=== PATIENT | male | born 1945 | race Caucasian/White ===

== ENCOUNTER 2023-02-10 09:52 | Day surgery (SDC) | payer OTHER, SELFPAY ==
[2023-02-10 10:07] VITALS: BP 174/75; PULSE 52; RESP 16; TEMP 36.2; O2SAT 98
[2023-02-10] MEDS: Tropicam./Phenyleph. (1/2.5%) 5 ML BTL OD ×3 (10:17→10:40)
--- NOTE | 2023-02-10 10:48 | ANES.PREOP_ITS ---
General Info Date of Service Date Performed: 02/10/23 Height: 5 ft 7.5 in Weight: 95.3 kg Body Mass Index (BMI): 32.4 Surgical Procedure: Operation Date: 02/10/23 11:25 Proposed Procedure Side Surgeon p Cataract Extraction with IOL Implant Right Honorio Moraes MD Meds Allergies and Home Medications Allergies Allergy/AdvReac Type Severity Reaction Status Date / Time rosiglitazone AdvReac Intermediate Unknown Unverified 02/10/23 10:21 Home Medication Medication Instructions Recorded apixaban 5 mg tablet 5 mg PO Q12H 02/09/23 atorvastatin 80 mg tablet 80 mg PO DAILY 02/09/23 clopidogrel 75 mg tablet 75 mg PO DAILY 02/09/23 diclofenac sodium 1 % topical gel 1 applic topical DIRECTED 02/09/23 diltiazem HCl 180 mg capsule,24 180 mg PO DAILY 02/09/23 hr,extended release folic acid 1 mg tablet 1 mg PO DAILY 02/09/23 glucose 4 gram chewable tablet 4 g PO DIRECTED 02/09/23 insulin glargine 100 unit/mL (3 50 unit subcut HS 02/09/23 mL) subcutaneous pen (Lantus Solostar U-100 Insulin) isosorbide mononitrate 60 mg 60 mg PO HS 02/09/23 tablet,extended release 24 hr lisinopril 10 mg tablet 10 mg PO DAILY 02/09/23 methotrexate sodium 2.5 mg tablet 15 mg PO QWEEK 02/09/23 metoprolol succinate 200 mg 200 mg PO DAILY 02/09/23 tablet,extended release 24 hr nitroglycerin 0.4 mg sublingual 0.4 mg sublingual DIRECTED 02/09/23 tablet ranolazine 500 mg tablet,extended 500 mg PO Q12H 02/09/23 release,12 hr Current Visit Medications: Current Medications Generic Name Dose Route Start Last Admin Trade Name Freq PRN Reason Stop Dose Admin Acetaminophen 1,000 mg 02/10/23 06:00 Acetaminophen 500 Mg Tab PO 03/12/23 05:59 Q4H PRN PRN Balanced Salt Solution 500 ml 02/10/23 06:00 Balanced Salt Soln.-Plus 500 Ml Bag OP 03/12/23 05:59 DIRECTED TOLU Miscellaneous Medication 0 ml 02/10/23 06:00 Prednisolone 1%, Moxifloxacin 0.5%, Nepafenac 0.1% 5ml Btl OD 03/12/23 05:59 DIRECTED TOLU Miscellaneous Medication 0 ml 02/10/23 06:00 02/10/23 10:40 Tropicam./Phenyleph. (1/2.5%) 5 Ml Btl OD 03/12/23 05:59 1 drp DIRECTED TOLU Administration Tetracaine HCl 0 ml 02/10/23 06:00 Tetracaine 0.5% 4 Ml Btl OD 03/12/23 05:59 DIRECTED TOLU PFSH Active Problems Active Problems: Problem Status Onset Code Posterior subcapsular age-related cataract, right eye H25.041 Cortical age-related cataract, right eye H25.011 Nuclear age-related cataract, right eye H25.11 Medical History Medical History A-fib Anxiety Depressive disorder Diabetes mellitus Edema Exposure to Agent [place] Eye injury Heart disease History of angina HTN (hypertension) Keratoderma, acquired Memory problem Migraines Myocardial infarction 1989 Paralytic sciatica Paraphimosis Phimosis Psoriatic arthritis PTSD (post-traumatic stress disorder) PVD (peripheral vascular disease) Spinal stenosis of lumbar region Tinnitus Medical History Comments:: 02/10/23: pt reports angina, vague when last angina episode was/possible a few weeks ago Surgical History Surgical History History of amputation of right foot pt states not whole foot, just toe and long bone in the foot S/P CABG x 3 12/2021x3 06/2022x1 total of 4 stents F/U with cardiology Dr. Cueva at [facility] Tobacco Smoking/Tobacco Use Status: Never Alcohol Alcohol Intake: current Alcohol intake frequency: a few times a week Alcohol type: beer Substance Use Substance use: Never Substance use type: does not use Vital Signs and Lab Results Vital Signs Most Recent Vital Signs in EMR: Most Recent Vital Signs Temp Pulse Resp BP Pulse Ox 36.2 C L 52 L 16 174/75 H 98 02/10/23 10:07 02/10/23 10:07 02/10/23 10:07 02/10/23 10:07 02/10/23 10:07 Point of Care Results Point of Care Results: Finger Stick Blood Glucose 159 02/10/23 10:09 Lab Results Blood Type / Crossmatch: No Data to Display Complete Blood Count: No Data to Display Complete Metabolic Panel: No Data to Display Liver Function Panel: No Data to Display Coagulation Panel: No Data to Display Cardiac Panel: No Data to Display Arterial Blood Gas: No Data to Display Venous Blood Gas: No Data to Display Pancreas Panel: No Data to Display Thyroid Panel: No Data to Display Infectious Disease: No Data to Display Blood Cultures: No Data to Display Toxicology Panel: No Data to Display Imaging and Studies Imaging and Studies Study information below may be from another EMR and interpreted by another provider. Please see original notes in EMR for more complete details. Echocardiogram Summary: Reviewed ECHO from [facility] [place]. Cardiac Catheterization Summary: Reviewed from outside facility. Anesthesia Assessment and Plan Anesthesia History Personal History: No History of Anesthesia Complications Family History: No Family History of Anesthesia Complications Exercise Tolerance Exercise Tolerance: Metabolic Equivalents<4 Pertinent Negatives Pertinent Negatives: No Symptoms of GERD and No History of CVA/TIA Cardiac & Pulmonary Exam Cardiac Exam: Normal S1/S2 Heart Sounds Pulmonary Exam: Wheezing Present (LLL, DESEAN) Implantable Cardiac Device Does patient have a Pacemaker or an ICD?: No Airway Exam Known Difficult Airway: No Mallampati Class: 2 Mouth Opening: Normal (> 3cm) Thyromental Distance: Greater than 3 cm Neck Range of Motion: Full ROM Neck Circumference: Normal Teeth Condition: Generalized Poor Dentition and Loose or Chipped Airway Comments: Many missing teeth. ASA Classification ASA Score: ASA 3 Emergency Case?: No NPO Status NPO Status: NPO Clears >2 hours, Solids >8 hours Anesthesia Plan Resuscitation Status: Full Code Anesthesia Technique: MAC Anesthesia Airway Planned: Natural Airway Monitors Used: Standard Monitors
[2023-02-10 11:05] VITALS: BMI 32.4
[2023-02-10] MEDS: Balanced Salt Soln.-PLUS 500 ML BAG OP (11:16)
[2023-02-10] MEDS: Tetracaine 0.5% 4 ML BTL OD (11:17)
[2023-02-10] MEDS: Lidocaine 1% Pres-Free 5 ML VIAL (11:18)
[2023-02-10] MEDS: Duovisc Viscoelastic System EACH 1 EACH (11:18)
[2023-02-10] MEDS: Phenylephrine/Lidocaine (15/10) MG/ML 1 ML VIAL (11:19)
[2023-02-10] MEDS: Povidone-Iodine Ophth 30 ML BTL (11:20)
[2023-02-10] MEDS: Triamcinolone 40 MG/ML VIAL (11:20)
[2023-02-10 11:30] VITALS: BP 126/67; PULSE 59; RESP 18; TEMP 36.5; O2SAT 96
--- NOTE | 2023-02-10 11:31 | W.PM.DSUDISC ---
Date of service: 02/10/23 Time of Service: 11:31 Discharge Plan Disposition Patient Disposition: Home Discharge Details Attending Provider: Honorio Moraes Primary Care Provider: [facility] Home Meds and New Rx's Prescriptions: No Action atorvastatin 80 mg Tablet 80 mg PO DAILY diltiazem HCl 180 mg Capsule,Extended Release 24 Hr 180 mg PO DAILY metoprolol succinate 200 mg Tablet Extended Release 24 Hr 200 mg PO DAILY clopidogrel 75 mg Tablet 75 mg PO DAILY isosorbide mononitrate 60 mg Tablet Extended Release 24 Hr 60 mg PO HS methotrexate sodium [Methotrexate (Anti-Rheumatic)] 2.5 mg Tablet 15 mg PO QWEEK lisinopril 10 mg Tablet 10 mg PO DAILY glucose 4 gram Tablet,Chewable 4 g PO DIRECTED nitroglycerin 0.4 mg Tablet, Sublingual 0.4 mg sublingual DIRECTED folic acid 1 mg Tablet 1 mg PO DAILY ranolazine 500 mg Tablet Extended Release 12 Hr 500 mg PO Q12H insulin glargine [Lantus Solostar U-100 Insulin] 100 unit/mL (3 mL) Insulin Pen 50 unit SUBCUT HS diclofenac sodium 1 % Gel 1 applic TOPICAL DIRECTED apixaban 5 mg Tablet 5 mg PO Q12H Discharge Instructions Stand Alone Forms: Post-op Topical Cataract, Colton Prescott ([facility]) Discharge Orders Discharge Orders: Discharge Order (Routine); Ordered 02/10/23 Ordered By: Honorio Moraes DS: Diagnosis Discharge Diagnosis (1) Posterior subcapsular age-related cataract, right eye: Status: Resolved (2) Cortical age-related cataract, right eye: Status: Resolved (3) Nuclear age-related cataract, right eye: Status: Resolved
--- NOTE | 2023-02-10 11:32 | W.PM.OP ---
Date of service: 02/10/23 Time of Service: 11:32 Operative Note Operative Note DATE OF PROCEDURE: 02/10/23 PRE-OP DIAGNOSIS: Nuclear/cortical/posterior subcapsular cataract, right eye POST-OP DIAGNOSIS: same PROCEDURE: Cataract extraction using phacoemulsification with intraocular lens implant, left eye SURGEON: Honorio Moraes ANESTHESIA TYPE: Local By Surgeon and MAC Refer to Anesthesia Record PATHOLOGY: none sent COMPLICATIONS: None Patient was transported to: same day Patient's condition: stable Implants: Finn and Finn Tecnis Eyhance DIB00 Indications: Progressive decreased vision due to cataract, left eye Procedure Description: CATARACT SURGERY OPERATIVE REPORT PREOPERATIVE DIAGNOSIS: 1. Nuclear/cortical/posterior subcapsular cataract, right eye POSTOPERATIVE DIAGNOSIS: Same OPERATION: 1. Cataract extraction using phacoemulsification with posterior chamber intraocular lens implant, left eye. IOL: IOL Indoor Plant Technician/Model: Finn & Finn Tecnis Eyhance DIB00 IOL Power: + 14.0 diopters IOL Serial Number: [id number] Optic Diameter: 6.0 mm Haptic/Overall Diameter: 13.0 mm PHACO INFO: Mark Indiewallsurion Vision System with OZil and Active Fluidics Cumulative Dispersed Energy (CDE): 11.55 seconds SURGEON: Honorio Moraes MD, FIOR ANESTHESIA: Monitored A [facility] (MAC), with local sub-tenon's anesthetic infiltration COMPLICATIONS: None SPECIMENS: None INDICATIONS FOR PROCEDURE: The patient is a 77-year-old gentleman with history of diminished visual acuity in both eyes secondary to the development of bilateral nuclear/cortical/posterior subcapsular cataract. He also has diabetes with diabetic retinopathy. The option of cataract surgery was offered to the patient and he felt he was symptomatic enough that he wished to proceed, although understands that postoperative visual acuity will be limited by the presence of pre-existing diabetic retinopathy. See office notes for detailed information. PROCEDURE: The correct surgical eye was identified and marked as the left eye and the pupil was dilated in the preoperative area using mydriatics and cycloplegics. The dilated pupil size was 7.0 mm. The patient elected to proceed without oral sedation. The patient was brought to the operating room where cardiopulmonary monitoring was instituted and surgical time-out was performed, confirming the correct operative eye and IOL power. Topical anesthesia was administered and ophthalmic povidone-iodine 5% was instilled into the conjunctival fornices. The roxanne-ocular area was prepped with Betadine 10% solution and draped in the usual sterile fashion for intraocular surgery, including an aperture drape. A Tegaderm transparent film dressing was cut in half and used to cover the lashes and lid margins. Care was taken to sequester the lashes and lid margins under the Tegaderm dressing. A lid speculum was placed between the lids of the operative eye and the Mark LuxOR Revalia operating microscope was maneuvered into position. Addis scissors were then used to make a conjunctival buttonhole approximately 6mm posterior to the limbus in the inferonasal quadrant. Blunt dissection was carried out to expose bare sclera, and a blunt-tipped sub-tenon?s anesthesia cannula was introduced and passed posteriorly along the globe where non-preserved plain lidocaine was injected into posterior sub-Tenon?s space. A sideport knife was used to make a paracentesis port. Intraocular phenylephrine/lidocaine was injected into the anterior chamber.. The anterior chamber was filled with viscoelastic. A keratome knife was used to construct a 2-plane near-clear corneal tunnel extending 2.0mm into clear cornea. A flap was raised on the anterior capsule and capsulorhexis forceps were used to complete a continuous curvilinear capsulorhexis of 5.0 mm. Balanced salt solution was then used to perform cortical cleaving hydrodissection and nuclear hydrodelineation until the lens could be freely rotated within the capsular bag. The lens nucleus was then disassembled and removed within the capsular bag and iris plane using phacoemulsification. Residual cortical material was removed using the irrigation/aspiration handpiece. The posterior capsule was carefully polished to remove as much residual lens epithelial cells as safely possible. The capsular bag was then inflated and the anterior chamber deepened with viscoelastic. The lens implant described above was inserted into the capsular bag using the Finn and Finn Simplicity pre-loaded injector. A Kuglen hook was used to dial the IOL into position. Residual viscoelastic was then removed first from posterior to the IOL, then from the anterior chamber using the I/A handpiece. The lens implant was noted to center nicely within the capsular bag. The incisions were stromally hydrated, and the anterior chamber was reformed using BSS. Then 0.5cc of moxifloxacin 1.0mg/ml were injected into the capsular bag and anterior chamber. The incisions were checked with a Weck spear and found to be secure. Next, Kenalog 20 mg in 0.5 cc were injected into posterior sub-tenon's space, using the sub-tenon's anesthesia injection cannula. Several drops of ophthalmic povidone-iodine 5% were then applied to the eye followed by two drops of Imprimis combination prednisolone/moxifloxacin/nepafenac solution. The drapes were removed and a clear plastic protective eye shield was placed over the eye. The patient was then returned to Same Day Surgery in stable condition.
--- NOTE | 2023-02-10 12:01 | W.ANESPOSTOP ---
Postoperative Evaluation Date, Time and Location Date Performed: 02/10/23 Time Performed: 11:32 Patient Location: Day Surgery Unit Vital Signs Most Recent Imported Vital Signs: Most Recent Vital Signs Temp Pulse Resp BP Pulse Ox 36.5 C 59 L 18 126/67 96 02/10/23 11:30 02/10/23 11:30 02/10/23 11:30 02/10/23 11:30 02/10/23 11:30 Pain Score Most Recent Pain Score: Most Recent Pain Score Pain Level 0 02/10/23 11:30 Assessment Mental Status: Awake (Alert & Oriented to Patient Baseline) Airway and Respiratory Function: Patent airway with normal (patient baseline) respiratory exam Cardiovascular Function: Hemodynamically Stable Hydration Status: Adequately Hydrated Nausea & Vomiting: No Nausea or Vomiting Pain: Pt. Denies Any Pain Peripheral Nerve Block: Other (Local by Dr. Moraes)
== END 2023-02-10 11:49 | disposition home or self-care (01) ==
PROVIDERS: Visit Provider Ophthalmology
PROC: (CPT 66984; principal; 2023-02-10 11:15)
DX: H25.041 Posterior subcapsular polar age-related cataract, right eye (principal); H25.011 Cortical age-related cataract, right eye; H25.11 Age-related nuclear cataract, right eye; I10 Essential (primary) hypertension
CPT/HCPCS: 66984; V2632

== ENCOUNTER 2023-02-24 12:13 | Day surgery (SDC) | payer OTHER, SELFPAY ==
[2023-02-24 13:16] VITALS: BP 165/72; PULSE 53; RESP 16; TEMP 36.5; O2SAT 98
[2023-02-24] MEDS: Tropicam./Phenyleph. (1/2.5%) 5 ML BTL OS ×3 (13:25→13:36)
--- NOTE | 2023-02-24 13:42 | ANES.PREOP_ITS ---
General Info Date of Service Date Performed: 02/24/23 Height: 5 ft 7 in Weight: 96.4 kg Body Mass Index (BMI): 33.3 Surgical Procedure: Operation Date: 02/24/23 14:40 Proposed Procedure Side Surgeon p Cataract Extraction with IOL Implant Left Honorio Moraes MD Meds Allergies and Home Medications Allergies Allergy/AdvReac Type Severity Reaction Status Date / Time rosiglitazone AdvReac Intermediate Unknown Verified 02/24/23 13:12 Home Medication Medication Instructions Recorded apixaban 5 mg tablet 5 mg PO Q12H 02/09/23 atorvastatin 80 mg tablet 80 mg PO DAILY 02/09/23 clopidogrel 75 mg tablet 75 mg PO DAILY 02/09/23 diclofenac sodium 1 % topical gel 1 applic topical DIRECTED 02/09/23 diltiazem HCl 180 mg capsule,24 180 mg PO DAILY 02/09/23 hr,extended release folic acid 1 mg tablet 1 mg PO DAILY 02/09/23 glucose 4 gram chewable tablet 4 g PO DIRECTED 02/09/23 insulin glargine 100 unit/mL (3 50 unit subcut HS 02/09/23 mL) subcutaneous pen (Lantus Solostar U-100 Insulin) isosorbide mononitrate 60 mg 60 mg PO HS 02/09/23 tablet,extended release 24 hr lisinopril 10 mg tablet 10 mg PO DAILY 02/09/23 methotrexate sodium 2.5 mg tablet 15 mg PO QWEEK 02/09/23 metoprolol succinate 200 mg 200 mg PO DAILY 02/09/23 tablet,extended release 24 hr nitroglycerin 0.4 mg sublingual 0.4 mg sublingual DIRECTED 02/09/23 tablet ranolazine 500 mg tablet,extended 500 mg PO Q12H 02/09/23 release,12 hr Current Visit Medications: Current Medications Generic Name Dose Route Start Last Admin Trade Name Freq PRN Reason Stop Dose Admin Acetaminophen 1,000 mg 02/24/23 06:00 Acetaminophen 500 Mg Tab PO 03/26/23 05:59 Q4H PRN PRN Balanced Salt Solution 500 ml 02/24/23 06:00 Balanced Salt Soln.-Plus 500 Ml Bag OP 03/26/23 05:59 DIRECTED TOLU Miscellaneous Medication 0 ml 02/24/23 06:00 Prednisolone 1%, Moxifloxacin 0.5%, Nepafenac 0.1% 5ml Btl OS 03/26/23 05:59 DIRECTED TOLU Miscellaneous Medication 0 ml 02/24/23 06:00 02/24/23 13:36 Tropicam./Phenyleph. (1/2.5%) 5 Ml Btl OS 03/26/23 05:59 1 drp DIRECTED TOLU Administration Tetracaine HCl 0 ml 02/24/23 06:00 Tetracaine 0.5% 4 Ml Btl OS 03/26/23 05:59 DIRECTED TOLU PFSH Active Problems Active Problems: Problem Status Onset Code Posterior subcapsular age-related cataract of left eye H25.042 Nuclear age-related cataract, left eye H25.12 Posterior subcapsular age-related cataract, right eye H25.041 Cortical age-related cataract, right eye H25.011 Nuclear age-related cataract, right eye H25.11 Medical History Medical History A-fib Anxiety Depressive disorder Diabetes mellitus Edema Exposure to Agent [place] Eye injury Heart disease History of angina HTN (hypertension) Keratoderma, acquired Memory problem Migraines Myocardial infarction 1989 Paralytic sciatica Paraphimosis Phimosis Psoriatic arthritis PTSD (post-traumatic stress disorder) PVD (peripheral vascular disease) Spinal stenosis of lumbar region Tinnitus Medical History Comments:: 02/10/23: pt reports angina, vague when last angina episode was/possible a few weeks ago Surgical History Surgical History History of amputation of right foot pt states not whole foot, just toe and long bone in the foot S/P CABG x 3 12/2021x3 06/2022x1 total of 4 stents F/U with cardiology Dr. Cueva at [facility] Tobacco Smoking/Tobacco Use Status: Never Alcohol Alcohol Intake: current Alcohol intake frequency: a few times a week Alcohol type: beer Substance Use Substance use: Never Substance use type: does not use Vital Signs and Lab Results Vital Signs Most Recent Vital Signs in EMR: Most Recent Vital Signs Temp Pulse Resp BP Pulse Ox 36.5 C 53 L 16 165/72 H 98 02/24/23 13:16 02/24/23 13:16 02/24/23 13:16 02/24/23 13:16 02/24/23 13:16 Lab Results Blood Type / Crossmatch: No Data to Display Complete Blood Count: No Data to Display Complete Metabolic Panel: No Data to Display Liver Function Panel: No Data to Display Coagulation Panel: No Data to Display Cardiac Panel: No Data to Display Arterial Blood Gas: No Data to Display Venous Blood Gas: No Data to Display Pancreas Panel: No Data to Display Thyroid Panel: No Data to Display Infectious Disease: No Data to Display Blood Cultures: No Data to Display Toxicology Panel: No Data to Display Imaging and Studies Imaging and Studies Study information below may be from another EMR and interpreted by another provider. Please see original notes in EMR for more complete details. Echocardiogram Summary: [place] [facility] [place] Cardiac Catheterization Summary: Reviewed from outside facility. Anesthesia Assessment and Plan Anesthesia History Personal History: No History of Anesthesia Complications Family History: No Family History of Anesthesia Complications Exercise Tolerance Exercise Tolerance: Metabolic Equivalents<4 Pertinent Negatives Pertinent Negatives: Other (No recent episodes of chest pain, no need for oral nitroglycerin as needed) Cardiac & Pulmonary Exam Cardiac Exam: Normal S1/S2 Heart Sounds Pulmonary Exam: Clear Bilateral Breath Sounds Implantable Cardiac Device Does patient have a Pacemaker or an ICD?: No Airway Exam Known Difficult Airway: No Mallampati Class: 2 Mouth Opening: Normal (> 3cm) Thyromental Distance: Greater than 3 cm Neck Range of Motion: Full ROM Neck Circumference: Normal Teeth Condition: Generalized Poor Dentition and Loose or Chipped Airway Comments: Many missing teeth. ASA Classification ASA Score: ASA 3 Emergency Case?: No NPO Status NPO Status: NPO Clears >2 hours, Solids >8 hours Anesthesia Plan Resuscitation Status: Full Code Anesthesia Technique: MAC Anesthesia Airway Planned: Natural Airway Monitors Used: Standard Monitors
[2023-02-24 13:57] VITALS: BMI 33.3
[2023-02-24] MEDS: Balanced Salt Soln.-PLUS 500 ML BAG OP (14:09)
[2023-02-24] MEDS: Tetracaine 0.5% 4 ML BTL OS (14:11)
[2023-02-24] MEDS: Lidocaine 1% Pres-Free 5 ML VIAL (14:12)
[2023-02-24] MEDS: Duovisc Viscoelastic System EACH 1 EACH (14:14)
[2023-02-24] MEDS: Phenylephrine/Lidocaine (15/10) MG/ML 1 ML VIAL (14:14)
[2023-02-24] MEDS: Povidone-Iodine Ophth 30 ML BTL (14:15)
[2023-02-24] MEDS: Triamcinolone 40 MG/ML VIAL (14:16)
[2023-02-24 14:32] VITALS: BP 141/97; PULSE 50; RESP 18; TEMP 36.4; O2SAT 96
--- NOTE | 2023-02-24 14:33 | W.PM.DSUDISC ---
Date of service: 02/24/23 Time of Service: 14:33 Discharge Plan Disposition Patient Disposition: Home Discharge Details Attending Provider: Honorio Moraes Home Meds and New Rx's Prescriptions: No Action atorvastatin 80 mg Tablet 80 mg PO DAILY diltiazem HCl 180 mg Capsule,Extended Release 24 Hr 180 mg PO DAILY metoprolol succinate 200 mg Tablet Extended Release 24 Hr 200 mg PO DAILY clopidogrel 75 mg Tablet 75 mg PO DAILY isosorbide mononitrate 60 mg Tablet Extended Release 24 Hr 60 mg PO HS methotrexate sodium [Methotrexate (Anti-Rheumatic)] 2.5 mg Tablet 15 mg PO QWEEK lisinopril 10 mg Tablet 10 mg PO DAILY glucose 4 gram Tablet,Chewable 4 g PO DIRECTED nitroglycerin 0.4 mg Tablet, Sublingual 0.4 mg sublingual DIRECTED folic acid 1 mg Tablet 1 mg PO DAILY ranolazine 500 mg Tablet Extended Release 12 Hr 500 mg PO Q12H insulin glargine [Lantus Solostar U-100 Insulin] 100 unit/mL (3 mL) Insulin Pen 50 unit SUBCUT HS diclofenac sodium 1 % Gel 1 applic TOPICAL DIRECTED apixaban 5 mg Tablet 5 mg PO Q12H Discharge Instructions Stand Alone Forms: Post-op Topical Cataract, Colton Prescott ([facility]) Discharge Orders Discharge Orders: Discharge Order (Routine); Ordered 02/24/23 Ordered By: Honorio Moraes DS: Diagnosis Discharge Diagnosis (1) Posterior subcapsular age-related cataract of left eye: Status: Resolved (2) Nuclear age-related cataract, left eye: Status: Resolved
--- NOTE | 2023-02-24 14:34 | ROE_ITS ---
Date of service: 02/24/23 Time of Service: 14:34 Operative Note Operative Note DATE OF PROCEDURE: 02/24/23 PRE-OP DIAGNOSIS: Nuclear cataract, left eye POST-OP DIAGNOSIS: same PROCEDURE: Cataract extraction using phacoemulsification with intraocular lens implant, left eye SURGEON: Honorio Moraes ANESTHESIA TYPE: Local By Surgeon and MAC Refer to Anesthesia Record PATHOLOGY: none sent COMPLICATIONS: None Patient was transported to: same day Patient's condition: stable Implants: Finn and Finn Tecnis Eyhance DIB00 Indications: Progressive decreased vision due to cataract, left eye Procedure Description: CATARACT SURGERY OPERATIVE REPORT PREOPERATIVE DIAGNOSIS: 1. Nuclear cataract, left eye POSTOPERATIVE DIAGNOSIS: Same OPERATION: 1. Cataract extraction using phacoemulsification with posterior chamber intraocular lens implant, left eye. IOL: IOL Die Tripper/Model: Finn & Finn Tecnis Eyhance DIB00 IOL Power: + 13.0 diopters IOL Serial Number: [id number] Optic Diameter: 6.0 mm Haptic/Overall Diameter: 13.0 mm PHACO INFO: Mark[employer]lex Systemson Vision System with OZil and Active Fluidics Cumulative Dispersed Energy (CDE): 23.29 seconds SURGEON: Honorio Moraes MD, FIOR ANESTHESIA: Monitored A [facility] (MAC), with local sub-tenon's anesthetic infiltration COMPLICATIONS: None SPECIMENS: None INDICATIONS FOR PROCEDURE: The patient is a 77-year-old gentleman with history of diminished visual acuity in his left eye secondary to the development of nuclear cataract. He is significantly symptomatic that he desires cataract surgery and attempt to improve and maximize his vision. He has already undergone cataract surgery in the right eye and is doing well postoperatively. He now presents for cataract surgery in the left eye. See office notes for detailed information. PROCEDURE: The correct surgical eye was identified and marked as the left eye and the pupil was dilated in the preoperative area using mydriatics and cycloplegics. The dilated pupil size was 7.0 mm. The patient elected to proceed without oral sedation. The patient was brought to the operating room where cardiopulmonary monitoring was instituted and surgical time-out was performed, confirming the correct operative eye and IOL power. Topical anesthesia was administered and ophthalmic povidone-iodine 5% was instilled into the conjunctival fornices. The roxanne-ocular area was prepped with Betadine 10% solution and draped in the usual sterile fashion for intraocular surgery, including an aperture drape. A Tegaderm transparent film dressing was cut in half and used to cover the lashes and lid margins. Care was taken to sequester the lashes and lid margins under the Tegaderm dressing. A lid speculum was placed between the lids of the operative eye and the Mark LuxOR Revalia operating microscope was maneuvered into position. Addis scissors were then used to make a conjunctival buttonhole approximately 6mm posterior to the limbus in the inferonasal quadrant. Blunt dissection was carried out to expose bare sclera, and a blunt-tipped sub-tenon?s anesthesia cannula was introduced and passed posteriorly along the globe where non- preserved plain lidocaine was injected into posterior sub-Tenon?s space. A sideport knife was used to make a paracentesis port. Intraocular phenylephrine/lidocaine was injected into the anterior chamber.. The anterior chamber was filled with viscoelastic. A keratome knife was used to construct a 2-plane near-clear corneal tunnel extending 2.0mm into clear cornea. A flap was raised on the anterior capsule and capsulorhexis forceps wer e used to complete a continuous curvilinear capsulorhexis of 5.0 mm. Balanced salt solution was then used to perform cortical cleaving hydrodissection and nuclear hydrodelineation until the lens could be freely rotated within the capsular bag. The lens nucleus was then disassembled and removed within the capsular bag and iris plane using phacoemulsification. Residual cortical material was removed using the irrigation/aspiration handpiece. The posterior capsule was carefully polished to remove as much residual lens epithelial cells as safely possible. The capsular bag was then inflated and the anterior chamber deepened with viscoelastic. The lens implant described above was inserted into the capsular bag using the Finn and Finn Simplicity pre-loaded injector. A Kuglen hook was used to dial the IOL into position. Residual viscoelastic was then removed first from posterior to the IOL, then from the anterior chamber using the I/A handpiece. The lens implant was noted to center nicely within the capsular bag. The incisions were stromally hydrated, and the anterior chamber was reformed using BSS. Then 0.5cc of moxifloxacin 1.0mg/ml were injected into the capsular bag and anterior chamber. The incisions were checked with a Weck spear and found to be secure. At the conclusion of the procedure, Kenalog 20 mg and 0.5 cc were injected into posterior sub-tenon's space using the sub-tenon's anesthesia injection cannula. Several drops of ophthalmic povidone-iodine 5% were then applied to the eye followed by two drops of Imprimis combination prednisolone/moxifloxacin/nep afenac solution. The drapes were removed and a clear plastic protective eye shield was placed over the eye. The patient was then returned to Same Day Surgery in stable condition.
--- NOTE | 2023-02-24 14:53 | W.ANESPOSTOP ---
Postoperative Evaluation Date, Time and Location Date Performed: 02/24/23 Time Performed: 14:53 Patient Location: Day Surgery Unit Vital Signs Most Recent Imported Vital Signs: Most Recent Vital Signs Temp Pulse Resp BP Pulse Ox 36.4 C L 50 L 18 141/97 H 96 02/24/23 14:32 02/24/23 14:32 02/24/23 14:32 02/24/23 14:32 02/24/23 14:32 Pain Score Most Recent Pain Score: Most Recent Pain Score Pain Level 0 02/24/23 14:32 Assessment Mental Status: Awake (Alert & Oriented to Patient Baseline) Airway and Respiratory Function: Patent airway with normal (patient baseline) respiratory exam Cardiovascular Function: Hemodynamically Stable Hydration Status: Adequately Hydrated Nausea & Vomiting: No Nausea or Vomiting Pain: Pt. Denies Any Pain Peripheral Nerve Block: Patient did not receive a nerve block
== END 2023-02-24 14:55 | disposition home or self-care (01) ==
LOC: SUR 12:13
PROVIDERS: Visit Provider Ophthalmology
PROC: (CPT 66984; principal; 2023-02-24 14:30)
DX: H25.042 Posterior subcapsular polar age-related cataract, left eye (principal); H25.12 Age-related nuclear cataract, left eye; I10 Essential (primary) hypertension
CPT/HCPCS: 66984; V2632